=== PATIENT | male | born 1980 | race Caucasian/White ===

== ENCOUNTER 2019-09-12 16:12 | Emergency (ER) | payer OTHER ==
[~2019-09-12] VITALS: Ht 182.9 cm; Wt 101.0 kg
[~2019-09-12 16:12] MED LIST: CEPH-569; SULF-165
[2019-09-12] MEDS ORDERED: KETOROLAC 30MG/ML VIAL IV STA (22:04)
[2019-09-12] MEDS ORDERED: SODIUM CHLORIDE 0.9% 1,000 ML IV ONE (22:04)
[2019-09-12 22:50] LABS: BASOPHILS % 0.4 % (0.0-2.0); EOSINOPHILS % 0.3 % (0.0-5.0); HEMOGLOBIN. 15.2 g/dL (14.0-18.0); MEAN CORPUSCULAR HEMOGLOBIN 29.5 pg (28.0-32.0); MEAN CORPUSCULAR VOLUME 87.2 fL (80.0-94.0); MEAN PLATELET VOLUME 9.2 fl (7.4-10.4); MONOCYTES % 5.6 % (2.0-8.0); NEUTROPHILS % 81.7 % (40.0-76.0); PLATELET 152 x1000/uL (130-400); RED BLOOD CELL COUNT 5.16 mill/uL (4.7-6.1); RED CELL DISTRIBUTION WIDTH 14.2 % (11.6-14.6)
[2019-09-12 22:56] LABS: CHLORIDE 102 mEq/L (98-107)
[2019-09-13] MEDS ORDERED: IBUPROFEN 800MG TABLET PO ONE (04:00)
[2019-09-13 04:07] VITALS: BP 112/84
== END 2019-09-13 04:10 | disposition home or self-care (01) ==
LOC: ER 16:12
DX: R10.84 Generalized abdominal pain (principal); R51 Headache; R05 Cough; D72.829 Elevated white blood cell count, unspecified; R11.0 Nausea
CPT/HCPCS: 36415; 74021; 80053; 83690; 83880; 84484; 85025; 96374; 99284; J1885; J7030